=== PATIENT | female | born 1990 | race Caucasian/White ===

== ENCOUNTER 2017-08-11 13:31 | Emergency (ER) | payer OTHER ==
[~2017-08-11] VITALS: Ht 162.6 cm; Wt 49.9 kg
--- NOTE | 2017-08-11 14:03 | NUR ---
PT MOVED FROM BED 16 TO ER BED 3.
--- NOTE | 2017-08-11 14:04 | NUR ---
Ernesto sam in [facility] - 08/11/17 at 1405 by TERA Patient discharged to home in stable condition. Written and verbal after care instructions given. Patient verbalizes understanding of instruction.
--- NOTE | 2017-08-11 14:20 | NUR ---
A/OX4, C/O DIARRHEA X THURSDAY. NAD VSS RR EVEN AND UNLABORED. PENDING ER MD BLOOM
[2017-08-11] MEDS ORDERED: CIPROFLOXACIN HCL 500 MG TABLET PO ONE (15:00)
[2017-08-11] MEDS ORDERED: CIPROFLOXACIN HCL 250 MG TABLET ONE (15:05)
[2017-08-11] MEDS ORDERED: CIPROFLOXACIN HCL 500 MG TABLET ONE (15:05)
--- NOTE | 2017-08-11 15:10 | NUR ---
MEDICATED ORDERED. Patient discharged to home in stable condition. Written and verbal after care instructions given. Patient verbalizes understanding of instruction.
[2017-08-11 15:12] VITALS: BP 115/70
== END 2017-08-11 15:12 | disposition home or self-care (01) ==
LOC: ER 13:36
DX: R19.7 Diarrhea, unspecified (principal)
CPT/HCPCS: A4606; Z7610